=== PATIENT | male | born 2000 | race Caucasian/White ===

== ENCOUNTER 2025-07-04 06:30 | Emergency (ER) | payer MEDICAID ==
[~2025-07-04] VITALS: Ht 170.2 cm; Wt 70.3 kg
[2025-07-04 07:06] LABS: PLATELET COUNT (AUTO) 256 K/uL (150-450); RED BLOOD CELL COUNT(AUTO) 4.42 MIL/uL (4.50-5.90); RED CELL DISTRIBUTION WIDTH 13.0 % (11.5-14.5); WHITE BLOOD COUNT (AUTO) 7.2 K/uL (4.5-11.0)
[2025-07-04 07:11] VITALS: TEMP 97.4
[2025-07-04 07:13] LABS: CALCIUM, TOTAL 8.5 mg/dL (8.8-10.5); CREATININE 0.94 mg/dL (0.60-1.30); GLOMERULAR FILTR. RATE CALC > 60 mL/min (>60); GLUCOSE,RANDOM 96 mg/dL (70-110); SODIUM SERUM 137 mmol/L (136-145); UREA NITROGEN, BLOOD 18 mg/dL (7-18)
[2025-07-04 07:17] LABS: ASPARTATE AMINOTRANSFERASE 23.0 U/L (15-37); TOTAL PROTEIN, SERUM 7.1 g/dL (6.4-8.2)
[2025-07-04] MEDS ORDERED: IOHEXOL 350 MG/ML 100 ML VIAL ONE (07:28)
[2025-07-04] MEDS: KETOROLAC TROMETHAMINE 30 MG/ML VIAL IVP ONE (07:46)
[2025-07-04] MEDS: ONDANSETRON HCL 4 MG/2 ML VIAL IVP ONE (07:47)
[2025-07-04] MEDS: SODIUM CHLORIDE 0.9% 1,000 ML IV ONE ×2 (07:47→08:10)
[2025-07-04] MEDS: ACETAMINOPHEN 500 MG TABLET PO ONE (08:11)
[2025-07-04 08:46] LABS: APPEARANCE,URINE CLEAR (CLEAR); GLUCOSE, URINE (UA) NEGATIVE (NEGATIVE); LEUKOCYTE ESTERASE ,URINE NEGATIVE (NEGATIVE); NITRATE,URINE NEGATIVE (NEGATIVE); OCCULT BLOOD,URINE NEGATIVE (NEGATIVE)
[2025-07-04 08:48] LABS: SPECIFIC GRAVITIY, URINE > 1.030 (1.003-1.030)
[2025-07-04] MEDS ORDERED: GADOTERATE MEGLUMINE 10 MMOL/20 ML VIAL IVP ONE (10:56)
[2025-07-04] MEDS: MORPHINE SULFATE 2 MG/ML SYRINGE IVP ONE (12:48)
[2025-07-04] MEDS ORDERED: ACET-3385 PO (13:26)
[2025-07-04 16:22] VITALS: BP 123/71; PULSE 78; RESP 14; O2SAT 100
== END 2025-07-04 16:43 | disposition home or self-care (01) ==
LOC: EMS 06:30
DX: D18.03 Hemangioma of intra-abdominal structures (principal); R10.10 Upper abdominal pain, unspecified
CPT/HCPCS: 99285; 74177; 74183; 96374; 96375; 96361; 80048; 80076; 81003; 83690; 85025; 36415; J1885; Q9967; A9575; J2270; J2405; J7030